=== PATIENT | male | born 1955 ===

== ENCOUNTER 2022-06-16 08:42 | Day surgery (SDC) | payer MEDICARE ==
[~2022-06-16] VITALS: Ht 167.6 cm; Wt 123.6 kg
[~2022-06-16 08:42] MED LIST: ATOR40TA PO; CETI10; CYCL10 PO; DOXY100 PO; DULO30; ESOM20; FURO40; GABA300; HUMALOG MI100 UNIT/2; INS70/30I; INSULANI; LISI10; LOSA50 PO; METF500C PO; METO100; METO50 PO; NITR.4SL SL; OMEP20ER PO; OZEMPIC1 MG/0.72 SQ; TAMS.4ER PO
--- NOTE | 2022-06-16 09:49 | NUR ---
06/16/22 0949 Shona Pedraza AT 0972 PLEET 0925
[2022-06-16] MEDS ORDERED: OXYCODONE-ACET1 EAC3 PO (09:54)
--- NOTE | 2022-06-16 11:25 | NUR ---
06/16/22 1125 Maria Antonia Lloyd PT REPORTED CHRONIC BACK PAIN BUT STATED IT WAS TOLERABLE AND EXPRESSED READINESS TO GO HOME
== END 2022-06-16 11:19 | disposition home or self-care (01) ==
LOC: ORSCSDS 08:42
PROVIDERS: Ophthalmology
PROC: 08RK3JZ Replacement of Left Lens with Synthetic Substitute, Percutaneous Approach (ICD-10-PCS; principal; 2022-06-16 10:00)
DX: H25.12 Age-related nuclear cataract, left eye (principal); E11.36 Type 2 diabetes mellitus with diabetic cataract; E11.319 Type 2 diabetes mellitus with unspecified diabetic retinopathy without macular edema; Z79.899 Other long term (current) drug therapy; Z79.4 Long term (current) use of insulin; Z79.84 Long term (current) use of oral hypoglycemic drugs; I10 Essential (primary) hypertension; E66.01 Morbid (severe) obesity due to excess calories; Z68.41 Body mass index [BMI] 40.0-44.9, adult
CPT/HCPCS: 82947; J2001; J2250; J3010; J3301; J7040; V2632

== ENCOUNTER 2022-06-30 06:49 | Day surgery (SDC) | payer MEDICARE ==
[~2022-06-30] VITALS: Ht 177.8 cm; Wt 124.3 kg
[~2022-06-30 06:49] MED LIST changes: +OXYCODONE-ACET1 EAC3 PO
--- NOTE | 2022-06-30 07:21 | NUR ---
06/30/22 0721 Shona Pedraza AT 0705 PLEDGET AT 0707
--- NOTE | 2022-06-30 07:54 | NUR ---
06/30/22 0754 Kristine Hope ARMS PADDED WITH PILLOW FOR COMFORT.
== END 2022-06-30 08:35 | disposition home or self-care (01) ==
LOC: ORSCSDS 06:49
PROVIDERS: Ophthalmology
PROC: 08DJ3ZZ Extraction of Right Lens, Percutaneous Approach (ICD-10-PCS; principal; 2022-06-30 08:00)
DX: H25.13 Age-related nuclear cataract, bilateral (principal); E11.319 Type 2 diabetes mellitus with unspecified diabetic retinopathy without macular edema; I10 Essential (primary) hypertension; I25.10 Atherosclerotic heart disease of native coronary artery without angina pectoris; E66.9 Obesity, unspecified; Z68.39 Body mass index [BMI] 39.0-39.9, adult; Z79.4 Long term (current) use of insulin; Z79.899 Other long term (current) drug therapy; Z79.84 Long term (current) use of oral hypoglycemic drugs
CPT/HCPCS: 82947; J2001; J2250; J3010; J3301; J7040; V2632